=== PATIENT | female | born 1970 | race Hispanic/Latino ===

== ENCOUNTER → 2021-09-08 | Day surgery (SDC) | payer OTHER ==
[~2021-09-08] MED LIST: BUTALB-ACETAMI1 EAC2 PO; FENTANYL CITRATE/PF 100MCG/2 ML INJ ONE; MIDAZOLAM HCL 2 MG/2 ML VIAL ONE; PROPOFOL IV EMULSION 10 MG/ML 20 ML VIAL ONE; UNK CHOLESTEROL MED PO
[2021-09-08 11:05] VITALS: BP 122/93
== END | disposition home or self-care (01) ==
LOC: OR 09:23
PROVIDERS: ATTEND Internal Medicine Gastroenterology
DX: Z12.11 Encounter for screening for malignant neoplasm of colon (principal); K63.5 Polyp of colon; K64.8 Other hemorrhoids; F41.9 Anxiety disorder, unspecified; Z01.810 Encounter for preprocedural cardiovascular examination; Z68.25 Body mass index [BMI] 25.0-25.9, adult; Z86.16 Personal history of COVID-19
CPT/HCPCS: 45380; 93005; J2250; J2704; J3010